=== PATIENT | male | born 1965 | race Caucasian/White ===

== ENCOUNTER 2020-06-15 00:06 | Outpatient (CLI) | payer BC, SELFPAY ==
[2020-06-15 20:45] LABS: SARS-CoV-2 RNA PCR Negative
== END 2020-06-15 00:07 | disposition home or self-care (01) ==
LOC: ANHCOVIDDT 00:06
PROVIDERS: PCP Family Medicine; Visit Provider Internal Medicine Gastroenterology
DX: Z01.812 Encounter for preprocedural laboratory examination (principal); Z20.828 Contact with and (suspected) exposure to other viral communicable diseases
CPT/HCPCS: 87635; C9803; U0003

== ENCOUNTER 2020-06-18 01:49 | Day surgery (SDC) | payer BC, SELFPAY ==
[2020-06-10 12:20] VITALS: BMI 35.2
--- NOTE | 2020-06-18 12:57 | WPDHPUPDATE1 ---
History and Physical Update Update Date/Time: 06/18/20 12:57 History and Physical has been reviewed, including an updated exam of the patient. There are NO changes in the patient's condition. Risks, benefits, and alternatives have been discussed and questions answered. Patient agrees to proceed with procedure.
[2020-06-18 13:14] VITALS: BP 100/82; PULSE 94; RESP 18; TEMP 36.6
[2020-06-18] MEDS: LACTATED RINGERS 1,000 ML 150 ML IV CONT (13:15)
--- NOTE | 2020-06-18 13:16 | WPDANESEPPF ---
Anes - Initial Pre Proc Eval Procedure: Operation Date: 06/18/20 14:15 Proposed Procedures p Esophagogastroduodenoscopy & Screening Colonoscopy - Alek Holloway MD Date/Time: 06/18/20 13:16 Surgeon: Alek Holloway MD Pre Op Diagnosis: Dyspahgia/ GERD/ Neoplasm Screening Patient Data Age: 54 Gender: M Height: 5 ft 10 in Weight: 114 kg Last Vital Signs Temp 98 F 06/18/20 13:14 Pulse 94 06/18/20 13:14 Resp 18 06/18/20 13:14 BP 100/82 06/18/20 13:14 Allergies Allergy/AdvReac Type Severity Reaction Status Date / Time Sulfa (Sulfonamide Allergy Unknown Unknown Verified 06/18/20 13:07 Antibiotics) sulfamethizole Allergy Unknown Unknown Verified 06/18/20 13:07 trimethoprim Allergy Unknown Unknown Verified 06/18/20 13:07 Home Medications Medication Instructions Recorded Confirmed Type atorvastatin 20 mg tablet 20 mg PO .QHS #90 tablet 08/05/19 06/10/20 Rx gabapentin 100 mg capsule 100 mg PO TID 08/05/19 06/10/20 History tadalafil 5 mg tablet 5 mg PO DAILY 08/05/19 06/10/20 History allopurinol 300 mg tablet 300 mg PO DAILY #90 tablet 12/27/19 06/10/20 Rx lisinopril 10 mg tablet See Rx Instructions .ROUTE 04/13/20 06/10/20 Rx .COMPLEX #90 tablet metformin 500 mg tablet,extended See Rx Instructions .ROUTE 04/13/20 06/10/20 Rx release 24 hr .COMPLEX #180 tablet sitagliptin 100 mg tablet See Rx Instructions .ROUTE 04/13/20 06/10/20 Rx .COMPLEX #90 tablet famotidine 20 mg tablet 20 mg PO DAILY 05/21/20 06/10/20 History ibuprofen 200 mg tablet 200 mg PO Q6H PRN 05/21/20 06/10/20 History mecobalamin (vitamin B12) 5,000 5,000 mcg PO DAILY 05/21/20 06/10/20 History mcg disintegrating tablet methylprednisolone 4 mg tablets in See Rx Instructions PO PER PKG DIR 06/02/20 06/10/20 Rx a dose pack #21 each Patient hx anesthesia problems: none Family hx anesthesia problems: none PMFSH Past Medical History Medical History (Updated 05/21/20 @ 15:27 by ALEX Osei) Diabetic peripheral neuropathy Dyslipidemia Erectile dysfunction Essential (primary) hypertension GERD without esophagitis Hypogonadism in male Low back pain at multiple sites Macrocytosis 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 Pain of lumbar spine Screening for malignant neoplasm of colon Type 2 diabetes mellitus without complication, without long-term current use of insulin Surgical History Surgical History History of back surgery 2016 History of knee surgery 1985 and 1989 [place] teeth extracted Social History Social History Smoking status: Never smoker Second hand tobacco smoke exposure: No Alcohol intake: current Drinks per week: 10 Substance use: never Substance use type: does not use Living arrangements: with family Gender identity (if verbalized by the patient): Male Spiritual care concerns: No Anes - Eval Final PreProcedure Day of Procedure 06/18/20 13:16 Patient weight: obese Heart: regular rate and rhythm Lungs: clear to auscultation Airway: Mallampati scale class III Neurological: alert and oriented Last oral intake: >/= 8 hours ASA classification: III Emergent: no Anesthetic plan: proceed Anesthesia type and monitoring: general GIVS and standard monitoring Informed Consent: The patient's anesthetic plan and its attendant risks and benefits were discussed with the patient/family/POA. Questions were solicited and answers provided to the satisfaction of the patient/family/POA.
[2020-06-18 13:26] LABS: Glucose Point of Care 115 (65-105)
[2020-06-18 13:52] VITALS: BP 112/66; PULSE 88; RESP 24; O2SAT 100
[2020-06-18 14:02] VITALS: BP 109/64; PULSE 89; RESP 20; O2SAT 100
[2020-06-18 14:12] VITALS: BP 115/68; PULSE 75; RESP 17; O2SAT 100
== END 2020-06-18 14:20 | disposition home or self-care (01) ==
PROVIDERS: PCP Family Medicine; Visit Provider Internal Medicine Gastroenterology
PROC: 0DJ08ZZ Inspection of Upper Intestinal Tract, Via Natural or Artificial Opening Endoscopic (ICD-10-PCS; CPT 43235; principal; 2020-06-18 14:15)
DX: Z12.11 Encounter for screening for malignant neoplasm of colon (principal); D12.5 Benign neoplasm of sigmoid colon; K63.5 Polyp of colon; K57.30 Diverticulosis of large intestine without perforation or abscess without bleeding; K64.8 Other hemorrhoids; K22.2 Esophageal obstruction; K21.00 Gastro-esophageal reflux disease with esophagitis, without bleeding; K29.50 Unspecified chronic gastritis without bleeding; E11.42 Type 2 diabetes mellitus with diabetic polyneuropathy; I10 Essential (primary) hypertension; E78.5 Hyperlipidemia, unspecified; E29.1 Testicular hypofunction; D75.89 Other specified diseases of blood and blood-forming organs; Z79.84 Long term (current) use of oral hypoglycemic drugs; E66.9 Obesity, unspecified; Z68.36 Body mass index [BMI] 36.0-36.9, adult
CPT/HCPCS: 45380; 45385; 43249; 43239; 88305; C1726; J2704; J7120

== ENCOUNTER → 2020-10-17 05:30 | Outpatient (CLI) | payer BC, SELFPAY ==
[2020-10-17 19:34] LABS: SARS-CoV-2 RNA PCR Negative
== END ==
PROVIDERS: PCP Family Medicine; Visit Provider Internal Medicine Gastroenterology
DX: Z01.812 Encounter for preprocedural laboratory examination (principal); Z20.822 Contact with and (suspected) exposure to COVID-19
CPT/HCPCS: C9803; U0003; U0005

== ENCOUNTER 2020-10-20 00:53 | Day surgery (SDC) | payer BC, SELFPAY ==
[2020-10-08 10:28] VITALS: BMI 34.7
--- NOTE | 2020-10-20 07:30 | PM.HPGS ---
History of Present Illness History of Present Illness Consent: Risks, benefits, and alternatives have been discussed and questions answered. Patient agrees to proceed with procedure. Chief complaint: Dysphagia Narrative: Williams Root is a 55 year old male recent found to have a high-grade stricture of the esophagus. He continues to have issues with dysphagia Review of Systems Review of Systems: All systems reviewed & are unremarkable except as noted in HPI and below PMFSH Past Medical History Medical History Diabetic peripheral neuropathy Dyslipidemia Erectile dysfunction Essential (primary) hypertension GERD without esophagitis Hypogonadism in male Low back pain at multiple sites Macrocytosis 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 Pain of lumbar spine Screening for malignant neoplasm of colon Type 2 diabetes mellitus without complication, without long-term current use of insulin Surgical History Surgical History History of back surgery 2016 History of knee surgery 1985 and 1989 [place] teeth extracted Social History Social History Smoking status: Never smoker Second hand tobacco smoke exposure: No Alcohol intake: current Drinks per week: 20 Substance use: never Substance use type: does not use Living arrangements: with family Gender identity (if verbalized by the patient): Male Spiritual care concerns: No Meds Home Medications and Allergies Home Medications Medication Instructions Recorded Confirmed Type atorvastatin 20 mg tablet 20 mg PO .QHS #90 tablet 08/05/19 10/08/20 Rx gabapentin 100 mg capsule 100 mg PO TID 08/05/19 10/08/20 History tadalafil 5 mg tablet 5 mg PO DAILY 08/05/19 10/08/20 History allopurinol 300 mg tablet 300 mg PO DAILY #90 tablet 12/27/19 10/08/20 Rx lisinopril 10 mg tablet See Rx Instructions .ROUTE 04/13/20 10/08/20 Rx .COMPLEX #90 tablet metformin 500 mg tablet,extended See Rx Instructions .ROUTE 04/13/20 10/08/20 Rx release 24 hr .COMPLEX #180 tablet sitagliptin 100 mg tablet See Rx Instructions .ROUTE 04/13/20 10/08/20 Rx .COMPLEX #90 tablet famotidine 20 mg tablet 20 mg PO DAILY 05/21/20 10/08/20 History ibuprofen 200 mg tablet 200 mg PO Q6H PRN 05/21/20 10/08/20 History mecobalamin (vitamin B12) 5,000 5,000 mcg PO DAILY 05/21/20 10/08/20 History mcg disintegrating tablet omeprazole 20 mg capsule,delayed 20 mg PO BID #60 cap 06/18/20 10/08/20 Rx release sucralfate 100 mg/mL oral 1 g PO TID #420 ml 06/18/20 10/08/20 Rx suspension Allergies Allergy/AdvReac Type Severity Reaction Status Date / Time Sulfa (Sulfonamide Allergy Unknown Unknown Verified 06/18/20 13:07 Antibiotics) trimethoprim Allergy Unknown Unknown Verified 06/18/20 13:07 Exam Const: General: alert Orientation/consciousness: patient oriented x3 Resp: Auscultation: clear to auscultation bilaterally Cardio: Rhythm: regular rhythm GI: GI Palp: Yes Soft to palpation and No Tenderness to palpation present (GI) Neuro: General: patient oriented x3 Assessment and Plan Assessment and plan (1) Dysphagia: Code(s): R13.10 - Dysphagia, unspecified Status: Acute Assessment and Plan: EGD with possible biopsy or dilatation or cautery.
[2020-10-20 08:26] VITALS: BP 151/85; PULSE 81; RESP 20; TEMP 36.7; O2SAT 97; BMI 36.8
[2020-10-20] MEDS: LACTATED RINGERS 1,000 ML 150 ML IV CONT (08:40)
--- NOTE | 2020-10-20 09:04 | WPDANESEPPF ---
Anes - Initial Pre Proc Eval Procedure: Operation Date: 10/20/20 08:30 Proposed Procedures p Esophagogastroduodenoscopy - Efe Williamson MD Date/Time: 10/20/20 09:04 Surgeon: Efe Williamson MD Pre Op Diagnosis: Dysphagia Patient Data Age: 55 Gender: M Height: 5 ft 10 in Weight: 116.6 kg Last Vital Signs Temp 98.1 F 10/20/20 08:26 Pulse 81 10/20/20 08:26 Resp 20 10/20/20 08:26 BP 151/85 H 10/20/20 08:26 Pulse Ox 97 10/20/20 08:26 Allergies Allergy/AdvReac Type Severity Reaction Status Date / Time Sulfa (Sulfonamide Allergy Unknown Unknown Verified 10/20/20 08:25 Antibiotics) trimethoprim Allergy Unknown Unknown Verified 10/20/20 08:25 Home Medications Medication Instructions Recorded Confirmed Type atorvastatin 20 mg tablet 20 mg PO .QHS #90 tablet 08/05/19 10/08/20 Rx gabapentin 100 mg capsule 100 mg PO TID 08/05/19 10/08/20 History tadalafil 5 mg tablet 5 mg PO DAILY 08/05/19 10/08/20 History allopurinol 300 mg tablet 300 mg PO DAILY #90 tablet 12/27/19 10/08/20 Rx lisinopril 10 mg tablet See Rx Instructions .ROUTE 04/13/20 10/08/20 Rx .COMPLEX #90 tablet metformin 500 mg tablet,extended See Rx Instructions .ROUTE 04/13/20 10/08/20 Rx release 24 hr .COMPLEX #180 tablet sitagliptin 100 mg tablet See Rx Instructions .ROUTE 04/13/20 10/08/20 Rx .COMPLEX #90 tablet famotidine 20 mg tablet 20 mg PO DAILY 05/21/20 10/08/20 History ibuprofen 200 mg tablet 200 mg PO Q6H PRN 05/21/20 10/08/20 History mecobalamin (vitamin B12) 5,000 5,000 mcg PO DAILY 05/21/20 10/08/20 History mcg disintegrating tablet omeprazole 20 mg capsule,delayed 20 mg PO BID #60 cap 06/18/20 10/08/20 Rx release sucralfate 100 mg/mL oral 1 g PO TID #420 ml 06/18/20 10/08/20 Rx suspension Patient hx anesthesia problems: none Family hx anesthesia problems: none PMFSH Past Medical History Medical History Diabetic peripheral neuropathy Dyslipidemia Erectile dysfunction Essential (primary) hypertension GERD without esophagitis Hypogonadism in male Low back pain at multiple sites Macrocytosis 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 Pain of lumbar spine Screening for malignant neoplasm of colon Type 2 diabetes mellitus without complication, without long-term current use of insulin Surgical History Surgical History History of back surgery 2016 History of knee surgery 1985 and 1989 [place] teeth extracted Social History Social History Smoking status: Never smoker Second hand tobacco smoke exposure: No Alcohol intake: current Drinks per week: 20 Substance use: never Substance use type: does not use Living arrangements: with family Gender identity (if verbalized by the patient): Male Spiritual care concerns: No Anes - Eval Final PreProcedure Day of Procedure 10/20/20 09:04 Patient weight: obese Heart: regular rate and rhythm Lungs: clear to auscultation Airway: Mallampati scale class III Neurological: alert and oriented Last oral intake: >/= 8 hours ASA classification: III Emergent: no Anesthetic plan: proceed Anesthesia type and monitoring: general GIVS and standard monitoring Informed Consent: The patient's anesthetic plan and its attendant risks and benefits were discussed with the patient/family/POA. Questions were solicited and answers provided to the satisfaction of the patient/family/POA.
[2020-10-20 09:38] LABS: Glucose Point of Care 108 (65-105)
[2020-10-20 09:52] VITALS: BP 143/76; PULSE 84; RESP 20; O2SAT 100
[2020-10-20 10:02] VITALS: BP 134/81; PULSE 84; RESP 20; O2SAT 100
[2020-10-20 10:11] VITALS: BP 136/84; PULSE 90; RESP 20; O2SAT 99
== END 2020-10-20 10:36 | disposition home or self-care (01) ==
PROVIDERS: PCP Family Medicine; Visit Provider Internal Medicine Gastroenterology
PROC: 0DJ08ZZ Inspection of Upper Intestinal Tract, Via Natural or Artificial Opening Endoscopic (ICD-10-PCS; CPT 43235; principal; 2020-10-20 08:30)
DX: K22.2 Esophageal obstruction (principal); K21.00 Gastro-esophageal reflux disease with esophagitis, without bleeding; E11.42 Type 2 diabetes mellitus with diabetic polyneuropathy; I10 Essential (primary) hypertension; E78.5 Hyperlipidemia, unspecified; D75.89 Other specified diseases of blood and blood-forming organs; Z79.84 Long term (current) use of oral hypoglycemic drugs; E66.9 Obesity, unspecified; Z68.36 Body mass index [BMI] 36.0-36.9, adult
CPT/HCPCS: 43239; C1726; J2001; J2704; J7120

== ENCOUNTER 2021-02-22 14:24 | Outpatient (CLI) | payer BC, SELFPAY ==
--- NOTE | ~2021-02-22 | US_ITS ---
EXAMINATION: US venous doppler LE RT DATE: 02/22/2021 14:50 INDICATION: Right lower limb pain TECHNIQUE: Castro scale images without and with compression and Doppler images of the right lower extre mity veins were obtained. COMPARISON: None FINDINGS: There is thrombosis of the popliteal vein, peroneal trunk, posterior tibial veins, and the soleus vein. The right common femoral vein, profunda femoral vein, femoral vein, and greater saphenou s vein are patent. IMPRESSION: 1. Thrombosis of the popliteal vein, peroneal trunk, posterior tibial veins, and soleus vein. Reviewed, dictated and finalized at location B. IMPRESSION: 1. Thrombosis of the popliteal vein, peroneal trunk, posterior tibial veins, an d soleus vein.
== END 2021-02-22 14:25 | disposition home or self-care (01) ==
LOC: ANHIMG 14:29
PROVIDERS: PCP Family Medicine; Visit Provider Family Medicine
DX: I82.431 Acute embolism and thrombosis of right popliteal vein (principal); I82.451 Acute embolism and thrombosis of right peroneal vein; I82.441 Acute embolism and thrombosis of right tibial vein; I82.461 Acute embolism and thrombosis of right calf muscular vein
CPT/HCPCS: 93971

== ENCOUNTER 2021-04-06 11:33 | Outpatient (RCR) | payer BC, SELFPAY ==
[2021-04-06] MEDS: FAMOTIDINE 20 MG TABLET PO (12:14)
[2021-04-06] MEDS: diphenhydrAMINE HCl CAP 25 MG CAPSULE PO (12:14)
[2021-04-06] MEDS: ACETAMINOPHEN 325 MG TABLET 650 MG PO (12:15)
[2021-04-06 12:23] VITALS: BP 144/80; PULSE 80; RESP 18; TEMP 36.9; O2SAT 100
--- NOTE | 2021-04-06 12:51 | PC.NURSE ---
Patient with covid symptoms of headache, cough, chest congestion, and sinus congestion.
[2021-04-06 13:42] VITALS: BP 142/85
--- NOTE | 2021-04-07 10:21 | PC.NURSE ---
Patient feels better after covid infusion.
== END 2021-04-06 16:30 | disposition home or self-care (01) ==
LOC: AMCINF 11:33
PROVIDERS: PCP Nurse Practitioner Family; Referring Provider Nurse Practitioner Family; Visit Provider Internal Medicine Hematology & Oncology
DX: Z23 Encounter for immunization (principal); U07.1 COVID-19; I10 Essential (primary) hypertension; E11.9 Type 2 diabetes mellitus without complications
CPT/HCPCS: A9270; J7050; M0243